=== PATIENT | female | born 1985 ===

== ENCOUNTER 2018-09-19 17:44 | Emergency (ER) | payer BC, MEDICAID ==
[2018-09-19 18:09] VITALS: BMI 25.2
[2018-09-19 18:16] VITALS: TEMP 98.1; O2SAT 98
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
[2018-09-19 19:26] VITALS: BP 110/70; PULSE 70; RESP 14
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
== END 2018-09-19 19:26 | disposition home or self-care (01) ==
LOC: C.ER 17:44
DX: S30.0XXA Contusion of lower back and pelvis, initial encounter (principal); V49.40XA Driver injured in collision with unspecified motor vehicles in traffic accident, initial encounter; M54.5 Low back pain